=== PATIENT | male | born 1995 | race Caucasian/White ===

== ENCOUNTER 2024-04-01 10:15 | Inpatient (IN) | payer BC, OTHER ==
[~2024-04-01] VITALS: Ht 188 cm; Wt 110.0 kg
[2024-04-01] MEDS ORDERED: SEVOFLURANE 250 ML BTL INH ONE (10:18)
[2024-04-01 10:59] LABS: BASOPHILS 0.2 % (0-2); EOSINOPHILS 0.2 % (0-6); HEMOGLOBIN 16.3 g/dL (12.0-18.0); LYMPHOCYTES 9.5 % (24-44); MCH 29.4 (27-36); MCHC 35.5 g/dl (30-36); MCV 82.7 fl (81-99); MONOCYTES 10.4 % (0-12); NEUTROPHILS 79.7 % (39-80); PLATELET COUNT 190 K/uL (140-440); RBC 5.56 M/ul (4.3-5.7); RDW 13.4 (10.5-15.0)
[2024-04-01 11:06] LABS: ALBUMIN 4.2 g/dL (3.4-5.0); ALBUMIN/GLOBULIN RATIO 1.02 (1.1-2.4); ANION GAP 10.8 (7-21); BILIRUBIN, TOTAL 1.6 ng/dL (0.2-1.0); BUN/CREATININE RATIO 8.8 (6.0-28.6); CALCIUM 9.7 mg/dL (8.5-10.1); CREATININE, SERUM 1.25 mg/dL (0.70-1.30); POTASSIUM 3.8 mmol/L (3.5-5.1); PROTEIN, TOTAL 8.3 g/dL (6.4-8.2)
[2024-04-01] MEDS ORDERED: SODIUM CHLORIDE 0.9% 1,000 ML IV PRN (11:15)
[2024-04-01] MEDS ORDERED: CEFTRIAXONE/SODIUM CHLORIDE 1 GM/100 ML PIGGYBACK IV ONE (12:15)
[2024-04-01] MEDS ORDERED: metroNIDAZOLE/SODIUM CHLORIDE 500 MG/100 ML PIGGYBACK IV ONE (12:15)
[2024-04-01 12:42] VITALS: BP 138/85
--- NOTE | 2024-04-01 12:45 | NUR ---
PT ARRIVES TO ROOM 126 VIA WHEELCHAIR TRANSPORTED BY ED RN - PT ALERT AND ORIENTED, TRANSFERS TO BED STEADY ON FEET. PT RATES PAIN 4/10 AND DENIES NEED FOR PAIN MEDICATION AT THIS TIME. IV PATENT, ABX INFUSING WITH BOLUS STARTED IN ED. ADMISSION ASSESSMENT AND HISTORY STARTED. PT ORIENTED TO ROOM AND CALL LIGHT.
[2024-04-01] MEDS ORDERED: HYDROmorphone HCL 1 MG/ML SYR IV PRN ×2 (13:00→15:45)
[2024-04-01] MEDS ORDERED: ondansetron HCL 4 MG/2 ML VIAL IV PRN ×3 (13:00→16:30)
[2024-04-01] MEDS ORDERED: LACTATED RINGER'S 1,000 ML IV SCH (13:00)
--- NOTE | 2024-04-01 14:54 | NUR ---
PT OFF FLOOR TO DAY SURGERY WITH OR RETAIL SALES VITAMIN CONSULTANT - FOLLOWING. ADMIT QUESTIONS REGARDING FOOD/HOUSING SECURITY UNABLE TO ASK AT THIS TIME PT IS OFF FLOOR.
[2024-04-01] MEDS ORDERED: propofoL 200 MG/20 ML VIAL ONE (15:06)
[2024-04-01] MEDS ORDERED: SUGAMMADEX SODIUM 200 MG/2 ML ML ONE (15:06)
[2024-04-01] MEDS ORDERED: ROCURONIUM BROMIDE 50 MG/5 ML SYR ONE ×2 (15:06→16:12)
[2024-04-01] MEDS ORDERED: KETOROLAC TROMETHAMINE 30 MG/ML VIAL ONE (15:06)
[2024-04-01] MEDS ORDERED: ondansetron HCL 4 MG/2 ML VIAL ONE (15:06)
[2024-04-01] MEDS ORDERED: LACTATED RINGER'S 1,000 ML IV ONE (15:06)
[2024-04-01] MEDS ORDERED: DEXAMETHASONE SOD PHOS 4 MG/ML VIAL ONE (15:06)
[2024-04-01] MEDS ORDERED: SUCCINYLCHOLINE IN 0.9% NACL 200 MG/10 ML SYRINGE ONE (15:06)
[2024-04-01] MEDS ORDERED: METOCLOPRAMIDE HCL 10 MG/2 ML SDV ONE (15:06)
[2024-04-01] MEDS ORDERED: FAMOTIDINE 20 MG/ 2 ML VIAL ONE (15:07)
[2024-04-01] MEDS ORDERED: MIDAZOLAM HCL 2 MG/2 ML VIAL ONE (15:07)
[2024-04-01] MEDS ORDERED: LIDOCAINE HCL 4% 5 ML AMP ONE (15:07)
[2024-04-01] MEDS ORDERED: fentaNYL citrate 100 MCG/2 ML VIAL ONE (15:07)
[2024-04-01] MEDS ORDERED: LIDOCAINE 1% W/ EPI 1:200,000 30 ML SDV ONE (15:10)
[2024-04-01] MEDS ORDERED: BUPIVACAINE HCL 0.25% 50 ML MDV ONE (15:10)
[2024-04-01] MEDS ORDERED: ENOXAPARIN SODIUM 40 MG/0.4 ML SYR SUB-Q SCH (15:30)
[2024-04-01] MEDS ORDERED: DEXTROSE 5% - LACTATED RINGERS 1,000 ML IV SCH (15:45)
[2024-04-01] MEDS ORDERED: OXYCODONE HCL 5 MG TAB PO PRN (15:45)
[2024-04-01] MEDS ORDERED: PROCHLORPERAZINE EDISYLATE 10 MG/2 ML VIAL IV PRN ×2 (15:45→16:30)
--- NOTE | 2024-04-01 15:57 | NUR ---
medications reconciled
[2024-04-01] MEDS ORDERED: ACETAMINOPHEN 325 MG TAB PO PRN (16:00)
[2024-04-01] MEDS ORDERED: MORPHINE SULFATE 10 MG/ML VIAL IV PRN (16:30)
[2024-04-01] MEDS ORDERED: NALOXONE HCL 0.4 MG SYR IV PRN (16:30)
[2024-04-01] MEDS ORDERED: fentaNYL citrate 50 MCG/ML SDV IV PRN (16:30)
[2024-04-01] MEDS ORDERED: IBLOOD GLUCOSE TEST STRIP 1 EA TEST VI PRN (16:30)
[2024-04-01] MEDS ORDERED: droPERidol 5 MG/2 ML VIAL IV PRN (16:30)
[2024-04-01] MEDS ORDERED: METOCLOPRAMIDE HCL 10 MG/2 ML SDV IV PRN (16:30)
[2024-04-01 17:56] VITALS: BP 124/76
--- NOTE | 2024-04-01 17:56 | NUR ---
PT RETURNS TO ROOM 126 FROM PACU WITH DIRECTOR SOFTWARE DEVELOPMENT - PT ALERT AND ORIENTED, ROOM AIR. RATES PAIN /10. VS STABLE. 3 LAP SITES COVERED WITH GAUZE, FRESH SEROSANG SPOTTING NOTED. FAMILY AT BEDSIDE, ALL QUESTIONS ANSWERED. BROTH AND JELLO PROVIDED. PT DENIES NAUSEA.
--- NOTE | 2024-04-01 18:16 | NUR ---
04/01/24 1816 Claudine Jackson 1705 PT ARRIVED IN PACU NON RESPONSIVE TO NOXIOUS STIMULI WITH OPA IN PLACE. CHIN LIFT HELD BY RN. 1710 ICE TO ABD. 1727 PT REACTIVE. OPA REMOVED. 1730 SITTING UP IN BED. NO C/O'S. 1745 SIPPING ON WATER. 1755 TO CCU VIA BED. REPORT GIVEN TO RN. FAMILY AT BEDSIDE.
[2024-04-01 18:53] VITALS: BP 135/76
--- NOTE | 2024-04-01 18:59 | NUR ---
PT RESTING IN BED WITH ICE PACK TO ABD. UP TO BATHROOM WITHOUT DIZZINESS. VOID UNMEASURED. IV SITE PATENT. RATES PAIN 2/10 AND WITHOUT NAUSEA AFTER BROTH AND JELLO. SCD'S IN PLACE. CALL LIGHT IN REACH.
--- NOTE | 2024-04-01 19:15 | NUR ---
RECEIVED REPORT FROM DAY SHIFT RN. PATIENT IS RESTING IN BED WATCHING TV. PATIENT DENIES ANY PAIN OR NAUSEA. PATIENT DENIES ANY PAIN OR NAUSEA. PATIENT DENIES ANY NEEDS. CALL LIGHT IN REACH.
[2024-04-01 20:53] VITALS: BP 130/85
--- NOTE | 2024-04-01 21:03 | NUR ---
PATIENT IS RESTING IN BED WATCHING TV. ASSESMENT COMPLETED. PATIENT DENIES ANY PAIN OR NAUSEA. PATIENT HAS X3 LAP SITES AND SMALL AMOUNT OF DRAINAGE NOTED. PATIENT HAS ACTIVE BOWEL TONES. PATIENT DENIES ANY NEEDS. CALL LIGHT IN REACH IV INFUSING PER ORDER.
[2024-04-01 21:19] LABS: BILIRUBIN, URINE NEGATIVE (negative); BLOOD/HGB, URINE NEGATIVE (Negative); KETONE, URINE NEGATIVE (Negative); LEUK ESTERASE, URINE NEGATIVE (negative); NITRITE, URINE NEGATIVE (negative); PH, URINE 6.5 (5-7)
--- NOTE | 2024-04-01 21:20 | NUR ---
PATIENT UP TO BR A SBA. PATIENT ABLE TO VOID. PATIENT IS BACK IN BED RESTING. PATIENT DENIES ANY PAIN OR NAUSEA. UA SENT PER ORDER. PATIENT DENIES ANY NEEDS. CALL LIGHT IN REACH.
[2024-04-01 22:43] VITALS: BP 118/81
--- NOTE | 2024-04-01 22:44 | NUR ---
PATIENTS VITALS OBTAINED. PATIENT DENIES ANY PAIN OR NAUSEA. PATIENT PROVIDED SNACK PER REQUEST. PATIENTS IV INFUSING PER ORDER. PATIENT PROVIDED FRESH ICE WATER. PATIENT DENIES ANY FURTHER NEEDS. CALL LIGHT IN REACH.
--- NOTE | 2024-04-01 23:16 | NUR ---
PATIENT ASSISTED TO TURN OFF LIGHT. PATIENT DENIES ANY PAIN OR NAUSEA. PATIENT DENIES ANY FURTHER NEEDS. CALL LIGHT IN REACH. IV INFUSING PER ORDER.
--- NOTE | 2024-04-02 00:59 | NUR ---
PATIENT IS RESTING IN BED WITH EYES CLOSED, RR 15. CALL LIGHT IN REACH. IV INFUSING PER ORDER. NAD NOTED. CALL LIGHT IN REACH.
[2024-04-02 02:20] VITALS: BP 121/85
--- NOTE | 2024-04-02 02:21 | NUR ---
PATIENTS IV ALARMING. PATIENT IS RESTING IN BED. NEW IV FLUID BAG INFUSING PER ORDER. PATIENT DENIES ANY PAIN OR NAUSEA. PATIENT DENIES THE NEED TO VOID. PATIENT DENIES ANY NEEDS. CALL LIGHT IN REACH.
--- NOTE | 2024-04-02 04:44 | NUR ---
PATIENT IS RESTING IN BED WITH EYES CLOSED, RR 15. CALL LIGHT IN REACH. IV INFUSING PER ORDER.
[2024-04-02 05:50] LABS: BASOPHILS 0.3 % (0-2); HEMATOCRIT 39.5 % (35.0-50.0); HEMOGLOBIN 14.2 g/dL (12.0-18.0); LYMPHOCYTES 7.9 % (24-44); MCH 29.5 (27-36); MCHC 35.9 g/dl (30-36); MCV 82.3 fl (81-99); MONOCYTES 9.5 % (0-12); NEUTROPHILS 82.3 % (39-80); PLATELET COUNT 184 K/uL (140-440); RDW 13.1 (10.5-15.0)
--- NOTE | 2024-04-02 05:52 | OR ---
[facility] [address] [place], [place] [address] Signed DATE OF OPERATION: 04/01/2024 SURGEON: Fernando Lmabert MD PREOPERATIVE DIAGNOSIS: Acute appendicitis. POSTOPERATIVE DIAGNOSIS: Acute appendicitis. PROCEDURE: Laparoscopic appendectomy. ESTIMATED BLOOD LOSS: None. FINDINGS: Vipul indeed had his appendix adherent to the posterior abdominal wall. It took a little extra time and carefully with very judicious cautery and blunt dissection to work that over medially, so we could complete the procedure. 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 He noticed over the last couple of days, he was having right lower quadrant abdominal pain associated with anorexia and nausea. It was getting worse. He finally left work and came to the emergency room. His white count was elevated. He was tender in the right lower quadrant. The CT scan showed his 1.1 cm appendix with an appendicolith and periappendiceal inflammation. I have been asked to admit him as a general surgeon on-call. He received Rocephin and Flagyl. I have been operating all day and we added him on the end of our day. I had met with Dony and his and we reviewed the above findings. We reviewed the location and function of the appendix. We discussed laparoscopic versus open appendectomy. He understands expected intraop and postop course. There is risk including, but not limited to bleeding, infection, scarring, change in contour the skin, damage to bowel, appendiceal stump leak, postoperative intra-abdominal abscess, incisional hernias and other unforeseen comorbidities. He had expressed understanding and wished to proceed. DESCRIPTION OF PROCEDURE: Dony was taken into the operating room and placed in the supine position under general endotracheal tube anesthesia. He was already on preoperative antibiotics. He was given Electronically Signed By: FERNANDO LAMBERT MD 04/02/24 0552 PATIENT NAME: DONY MATTHEW OPERATIVE REPORT DATE OF : [birth year] REPORT #: [id number] PHYSICIAN: FERNANDO LAMBERT MD PCP: NO PRIMARY CARE PHYSICIAN REPORT IS CONFIDENTIAL AND NOT TO BE RELEASED WITHOUT AUTHORIZATION [facility] [address], [place] [address] Signed subcutaneous Lovenox. SCDs were in place. Villeda catheter was inserted with return of clear yellow urine. He was then prepped and draped in the usual sterile fashion. We placed all our trocars in the usual positions under direct visualization of camera without difficulty. We could easily see the cecum and the anterior taenia coli. We followed that down to the base of the appendix. We had to sweep away some inflamed bowel. We could see that just like on the CT scan, his appendix was adherent posteriorly. I freed up the cecum up the right line of Toldt just a short distance, so I could get into some soft tissue and come down towards the base of the appendix in the midportion of the appendix. Thankfully, the tip of the appendix was free and I was able to work from the tip down towards the middle of the appendix and eventually had that free. We made a window at the base of the appendix with the help of cautery with our linear stapler went through and we were able to divide the appendix from the base of the cecum with good hemostasis. Thankfully, his mesoappendix was not particularly wide. I carefully broke the surface of cirrhosis with the cautery and that just a bit. We put the vascular load on the linear stapler and we divided that with good hemostasis as well. We then placed the appendix into the EndoCatch bag. We went back and irrigated that area and we felt all the hemostasis was excellent. The bowel was returned to its position. We pulled the appendix out through the right subcostal trocar site. We then closed that trocar site with an interrupted 0-Vicryl suture with our laparoscopic suturing device. The gas was then allowed to escape and the remaining two trocars were removed. We closed the fascia of the supraumbilical trocar site with interrupted [id number] and simple 0-Vicryl sutures. Local anesthetic was injected into all three trocar sites. The skin and dermis of each trocar site were closed with interrupted 3-0 subcuticular Monocryl sutures. Each wound had been irrigated and suctioned out until clear. We then brought the skin edges together with Mastisol and 0.5 inch Steri-Strips. Dry gauze and tape was then applied. The Villeda catheter was removed without difficulty. Dony was awakened from his anesthesia, extubated in the OR, taken to recovery room in stable condition. Fernando Lambert MD ALB/MODL /[id number] cc: Fernando Lambert MD Electronically Signed By: FERNANDO LAMBERT MD 04/02/24 0552 PATIENT NAME: DONY MATTHEW OPERATIVE REPORT DATE OF : [birth year] REPORT #: [id number] PHYSICIAN: FERNANDO LAMBERT MD PCP: NO PRIMARY CARE PHYSICIAN REPORT IS CONFIDENTIAL AND NOT TO BE RELEASED WITHOUT AUTHORIZATION [address] [place], [place] [address] Signed Copies: FERNANDO LAMBERT MD ~ Electronically Signed By: FERNANDO LAMBERT MD 04/02/24 0552 PATIENT NAME: VIPULDONY OPERATIVE REPORT DATE OF : [birth year] REPORT #: [id number] PHYSICIAN: FERNANDO LAMBERT MD PCP: NO PRIMARY CARE PHYSICIAN REPORT IS CONFIDENTIAL AND NOT TO BE RELEASED WITHOUT AUTHORIZATION
--- NOTE | 2024-04-02 06:08 | NUR ---
PATIENTS VITALS TAKEN AND RECORDED. INTAKE AND OUTPUT RECORDED. PATIENT UP AMBUALTING IN KAUFMAN. PATIENT RATES PAIN AT A 4/10 IN ABD, PRN TYLENOL GIVEN PER ORDER. PATIENT DENIES ANY NAUSEA. BROTH AND ICE WATER PROVIDED.
[2024-04-02 06:09] VITALS: BP 127/81
[2024-04-02 06:10] VITALS: BP 127/81
[2024-04-02 06:11] LABS: ANION GAP 10.8 (7-21); BUN/CREATININE RATIO 8.57 (6.0-28.6); CALCIUM 9.1 mg/dL (8.5-10.1); CREATININE, SERUM 1.05 mg/dL (0.70-1.30); MAGNESIUM 1.9 mg/dL (1.8-2.4); PHOSPHORUS, INORGANIC 3.4 mg/dL (2.5-4.9); POTASSIUM 3.8 mmol/L (3.5-5.1)
--- NOTE | 2024-04-02 07:30 | NUR ---
REPORT RECEIVED FROM SUPERVISOR [employer] RN SAUL IN THE CCU. PATIENT TRANNSFERRED TO THE MED SURG FLOOR. PATIENT AMBULATED AND ASSISTED RN WITH BRINGING OVER PERSONAL BELONGINGS. ICE PACK AND ICE WATER PROVIDED. PATIENT STATED NO FURTHER NEEDS AT THIS TIME. CALL LIGHT AND PERSONAL BELONGINGS ARE WITHIN REACH. GUANAKITO POZO GOT A SET OF VITAL SIGNS.
[2024-04-02 07:45] VITALS: BP 117/62
--- NOTE | 2024-04-02 07:45 | NUR ---
UR CLINICAL REVIEW: [facility] FOR APPENDECTOMY WITHOUT ABSCESS OR PERITONITIS MEETS DC [facility] PPO INPT 04/01/24 @ 1208 ORDER MATCHES STATUS WILL SEND CLINICALS IF REQUESTED FOR AUTH PLAN TO DC TO HOME TODAY
--- NOTE | 2024-04-02 08:08 | CONS ---
[facility] [address] [place], [place] [address] Signed DATE OF CONSULTATION: 04/01/2024 CHIEF COMPLAINT: Right lower quadrant abdominal pain. 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 He said the last two days he has had right lower quadrant abdominal pain with anorexia and nausea. He finally came to the emergency room for evaluation. His white count was a little up at 12.1 and he was tender in the right lower quadrant. The CT scan confirmed his inflamed, thickened appendix with some periappendiceal inflammation. He has a small appendicolith as well. I have been asked to admit him as the general surgeon on-call. He received Rocephin and Flagyl, some IV fluids and pain control overnight. This morning, he seems to be doing about the same. PAST MEDICAL HISTORY: None. PAST SURGICAL HISTORY: [place] teeth extraction. SOCIAL HISTORY: He does not smoke or drink, but he does vape. He has no primary care provider. He prefers the [facility]. He is to his , Madhuri, at . They have no children. 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 FAMILY HISTORY: Hypertension and depression. REVIEW OF SYSTEMS: He had 10 systems reviewed. He talked about his wisdom teeth extraction. ALLERGIES: None. MEDICATIONS: None. PHYSICAL EXAMINATION: VITAL SIGNS: His blood pressure is 138/85, heart rate 77, respiratory rate 16, temperature is 99.8, and he is 100% on room air. He is 6 feet 2 inches tall, at 109 kg with a body mass index of 31. GENERAL: Dony is a 29-year-old gentleman, lying supine in his hospital bed. He is in Electronically Signed By: FERNANDO TORREZ MD 04/02/24 0808 PATIENT NAME: DONY MATTHEW CONSULTATION DATE OF : [birth year] REPORT #: [id number] PHYSICIAN: FERNANDO TORREZ MD PCP: NO PRIMARY CARE PHYSICIAN REPORT IS CONFIDENTIAL AND NOT TO BE RELEASED WITHOUT AUTHORIZATION [facility] [address] [place], [place] [address] Signed no acute distress. LUNGS: Clear to auscultation bilaterally. HEART: Regular rate and rhythm, without murmurs. ABDOMEN: Soft and flat, but he is clearly tender just below McBurney's point. LABORATORY DATA: His white blood cell count is 12.1, hemoglobin 16, and neutrophils 79. Total bilirubin slightly up at 1.6. The rest of his labs were fine. RADIOGRAPHIC STUDIES: CT scan of abdomen and pelvis is reviewed with the report and the images. He can see this 1.1 cm inflamed appendix with an appendicolith and then periappendiceal inflammation posteriorly in the right lower quadrant. ASSESSMENT AND PLAN: Dony is a 29-year-old gentleman, who presents with acute appendicitis. He has been admitted, started on IV fluids and antibiotics. We are going to be taking him to the operating room shortly for his surgery. We have reviewed the location and function of appendix. We have discussed laparoscopic versus open appendectomy. He understands the expected intraop and postop course. There is risk including, but not limited to bleeding, infection, scarring, change in contour of the skin, damage to bowel, appendiceal stump leak, postoperative intra-abdominal abscess, incisional hernias, and other unforeseen comorbidities. He and his have expressed understanding, would like to proceed. Fernando Torrez MD ALB/MODL /[id number] cc: Patient Chart Fernando Torrez MD Electronically Signed By: FERNANDO TORREZ MD 04/02/2408 PATIENT NAME: DONY MATTHEW CONSULTATION DATE OF : [birth year] REPORT #: [id number] PHYSICIAN: FERNANDO TORREZ MD PCP: NO PRIMARY CARE PHYSICIAN REPORT IS CONFIDENTIAL AND NOT TO BE RELEASED WITHOUT AUTHORIZATION [facility] [address] [place] [address] [place], [place] [address] Signed Copies: FERNANDO TORREZ MD ~ Electronically Signed By: FERNANDO TORREZ MD 04/02/2408 PATIENT NAME: DONY MATTHEW CONSULTATION DATE OF : [birth year] REPORT #: [id number] PHYSICIAN: FERNANDO TORREZ MD PCP: NO PRIMARY CARE PHYSICIAN REPORT IS CONFIDENTIAL AND NOT TO BE RELEASED WITHOUT AUTHORIZATION
--- NOTE | 2024-04-02 08:08 | DS ---
[facility] [address] [place], [place] [address] Signed ADMISSION DATE: 04/01/2024 DISCHARGE DATE: 04/02/2024 FINAL DIAGNOSIS: Acute appendicitis. PROCEDURE: Laparoscopic appendectomy. 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 He said for two days, he had right lower quadrant abdominal pain associated with anorexia and nausea. He came to the emergency room for evaluation. He is tender in the right lower quadrant with an elevated white blood cell count. CT scan of the abdomen and pelvis confirmed his appendicitis. I was asked to admit him as a general surgeon on-call. HOSPITAL COURSE: I had met with Dony and his that same day. I had been operating all day. He had been on Rocephin and Flagyl with some pain control and IV fluids. I took him to the operating room for his laparoscopic appendectomy. He had fairly significant appendicitis and was adherent posteriorly. It took a moderate amount of dissection to get that appendix out. He has done well intraop and postop. He is very motivated to go home. He has been using only Tylenol for the pain. He has been on liquid diet overnight and passing flatus. His abdomen is soft and flat, sliver lap machine tender as expected after surgery. He said he would like to try a full liquid diet. If it goes well, he would like to go home with his . He happens to live here locally. DISCHARGE PLANS AND MEDICATIONS: Dony will be discharged to home with oxycodone immediate release 10 mg tablets one p.o. q.8 hours p.r.n. for severe postoperative pain, dispensed 15 tablets with no refills. We will give him Levaquin 500 mg one p.o. daily for five days. He will have Flagyl 500 mg one p.o. t.i.d. for five days. He can use Tylenol, ibuprofen, or Aleve as needed for xpva-oe-[id number] postoperative pain. He can purchase that hjke-yrl-blvekka. He takes no chronic medications. He will stay on a full liquid diet for a day or two and advance as tolerated. He is not to do any heavy pushing, pulling, or lifting over 20 pounds. 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 He should not be do any heavy pushing, pulling, or lifting over about 20 pounds for a couple of months. We will leave the Steri-Strips in place. He can shower and bathe as usual. We are going to have him back in the office in a week or so for followup. He has expressed understanding, agrees Electronically Signed By: FERNANDO TORREZ MD 04/02/24 0808 PATIENT NAME: DONY MATTHEW DISCHARGE SUMMARY DATE OF : [birth year] REPORT #: [id number] PHYSICIAN: FERNANDO TORREZ MD PCP: NO PRIMARY CARE PHYSICIAN REPORT IS CONFIDENTIAL AND NOT TO BE RELEASED WITHOUT AUTHORIZATION [address] [address] Signed with the above plan. Fernando Torrez MD ALB/MODL /[id number] cc: Fernando Torrze MD Patient's Chart Copies: FERNANDO TORREZ MD ~ Electronically Signed By: FERNANDO TORREZ MD 04/02/24 0808 PATIENT NAME: DONY MATTHEW DISCHARGE SUMMARY DATE OF : [birth year] REPORT #: [id number] PHYSICIAN: FERNANDO TORREZ MD PCP: NO PRIMARY CARE PHYSICIAN REPORT IS CONFIDENTIAL AND NOT TO BE RELEASED WITHOUT AUTHORIZATION
--- NOTE | 2024-04-02 08:15 | NUR ---
0900 MEDICATIONS ADMINISTERED PER THE EMAR. FULL ASSESSMENT COMPLETE AND DOCUMENTED IN THE CHART. PATIENT IS ALERT AND ORIENTED TIMES FOUR. CARDIAC WITH NORMAL S1 AND S2 ON AUSCULTATION. RADIAL PULSES ARE STRONG BILATERALLY. SENSATION INTACT WITH NO COMPLAINTS OF NUMBNESS OR TINGLING. PATIENT IS ON ROOM AIR AND LUNG SOUNDS ARE CLEAR BILATERALLY. PATIENT IS ON A FULL LIQUID DIET AND HIS LAST BM WAS 04/01/24. NO DISTENTION NOTED AND PATIENT STATES THIS IS NORMAL FOR HIM. ABDOMEN IS TENDER TO PALPATION. BOWEL TONES ARE ACTIVE IN ALL FOUR QUADRANTS. NO COMPLAINTS OF NAUSEA. ABDOMEN WITH 3 LAP SITES WITH STERI STRIPS. STERI STRIPS WITH SMALL AMOUNT OF DRY DRAINAGE NOTED. SCATTERED TATTOOS NOTED. PATIENT IS INDEPENDENT IN THE ROOM. IV FLUSHED WITH 10 ML NORMAL SALINE AND FLAGYL AND ROCEPHIN ARE INFUSING AT THIS TIME. IV DRESSING IS CLEAN, DRY, AND INTACT. BREAKFAST TRAY IS ON THE BEDSIDE TABLE. PATIENT STATED NO FURTHER NEEDS AT THIS TIME. CALL LIGHT AND PERSONAL BELONGINGS ARE WITHIN REACH.
[2024-04-02] MEDS ORDERED: OXYCODONE HCL10 MG PO (08:47)
[2024-04-02] MEDS ORDERED: LEVOFLOXACIN500 MG PO (08:48)
--- NOTE | 2024-04-02 08:52 | NUR ---
IV ROCEPHIN INFUSION AND FIRST INFUSION OR FLAGYL COMPLETE. IV FLUSHED WITH 10 ML NORMAL SALINE. 2ND DOSE OF FLAGYL STARTED. IV DRESSING IS CLEAN, DRY, AND INTACT. BREAKFAST TRAY REMOVED AT THIS TIME. PATIENT STATED NO FURTHER NEEDS AT THIS TIME. CALL LIGHT AND PERSONAL BELONGINGS ARE WITHIN REACH.
[2024-04-02] MEDS ORDERED: PANTOPRAZOLE SODIUM 40 MG/10 ML VIAL IV SCH (09:00)
[2024-04-02] MEDS ORDERED: metroNIDAZOLE/SODIUM CHLORIDE 500 MG/100 ML PIGGYBACK IV SCH (09:00)
[2024-04-02] MEDS ORDERED: CEFTRIAXONE/SODIUM CHLORIDE 2 GM/100 ML PIGGYBACK IV SCH (09:00)
--- NOTE | 2024-04-02 09:00 | NUR ---
PATIENT ALERT AND ORIENTED. PATIENT INFORMATION UPDATED. HE LIVES AT HOME WITH . HE LIVES IN A TRAILER HOME. 3 TO [address]PS INTO THE HOUSE. PATIENT DRIVES HIMSELF. WILL DRIVE PATIENT HOME AT DISCHARGE. NELLIE FAMILY CALLED AND WILL SEE PATIENT IN OCTOBER AND WILL GET IN SOONER WITH NEW PROVIDER GET AUTH. PATIENT DENIES ANY FINANICAL NEEDS OR DIFFCULTY OBTAINING FOOD. NO DME AT HOME. NO OTHER CASE MANAGEMENT NEEDS AT THIS TIME.
--- NOTE | 2024-04-02 09:27 | NUR ---
IV PUMP CLEARED OF INTAKE FLUIDS. PATIENT WITH A VISITOR SITTING IN THE CHAIR. PATIENT NOTIFIED HE CAN START GETTING DRESSED. PATIENT EXPRESSED UNDERSTANDING WITH NO FURTHER NEEDS. CALL LIGHT AND PERSONAL BELONGINGS ARE WITHIN REACH.
[2024-04-02 09:52] VITALS: BP 139/76
--- NOTE | 2024-04-02 10:02 | NUR ---
Wound care done by RNs Anita and Tavia. Attends changed and new purewick placed. Patient is sitting up in bed eating breakfast.
[2024-04-02 10:49] VITALS: BP 139/76
--- NOTE | 2024-04-06 15:35 | PATH ---
[facility] [address] [place], [place] [address] Signed SPECIMEN(S): A APPENDIX SPECIMEN SOURCE: A. APPENDIX CLINICAL HISTORY: Appendicitis FINAL PATHOLOGIC DIAGNOSIS: Appendix, appendectomy: - Acute suppurative appendicitis with periappendicitis and serositis. JVR:pallavi MICROSCOPIC EXAMINATION: Histologic sections of all submitted blocks are examined by light microscopy. These findings, together with the gross examination, support the pathologic diagnosis. GROSS DESCRIPTION: The specimen, labeled and designated "Ayan, appendix," is received in formalin and consists of Specimen: Appendix with mesoappendix. Dimensions: 8.0 x 2.4 x 1.3 cm. Serosa: Red-brown. Defect: Not grossly identified. Inking: Staple line and mesoappendix margin inked Blue. Mucosa: Red-brown. Fecalith: Not grossly identified. Additional: None. Nursing Care Partner sections are submitted in (A1). VB (under the direct supervision of a pathologist) The Gross Description was prepared using a voice recognition system. The report was reviewed for accuracy; however, sound-alike word errors, addition and/or deletions may occur. If there is any question about this report, please contact Client Services. PERFORMING LABORATORY: Technical component was performed by [facility], [address] [place] [id number] (CLIA# [id number]). Professional interpretation was performed by [facility] - [facility], [address] [place] [address], [place] [address] (CLIA#: [id number]). PATIENT NAME: ANITRA MATTHEW PATHOLOGY DATE OF : [birth year] REPORT #: [id number] PHYSICIAN: [facility] PCP: INDERJIT JAIMES PA-C REPORT IS CONFIDENTIAL AND NOT TO BE RELEASED WITHOUT AUTHORIZATION [facility] [address] [place] [id number] Signed Diagnostician: Sean Zamora MD Pathologist Electronically Signed 04/06/2024 Copies: ~ PATIENT NAME: ANITRA MATTHEW PATHOLOGY DATE OF : 95 REPORT #: [id number] PHYSICIAN: [facility] PCP: INDERJIT JAIMES PA-C REPORT IS CONFIDENTIAL AND NOT TO BE RELEASED WITHOUT AUTHORIZATION
== END 2024-04-02 10:25 | disposition home or self-care (01) | DRG 399 ==
LOC: ED 10:15 → CCU 12:20 → MS 04-02 07:40
PROVIDERS: Emergency Medicine; ADMIT Colon & Rectal Surgery; ATTEND Colon & Rectal Surgery
PROC: 0DTJ4ZZ Resection of Appendix, Percutaneous Endoscopic Approach (ICD-10-PCS; principal; 2024-04-01 17:30)
DX: K35.80 Unspecified acute appendicitis (principal); K38.1 Appendicular concretions
CPT/HCPCS: 00840; 36415; 74177; 80048; 80053; 81003; 83690; 83735; 84100; 85025; 94762; 99285-25; 99406; A9270; J0330; J0696; J1100; J1650; J1885; J2250; J2405; J2704; J2765; J3010; J3490; J7030; J7121; Q9967